=== PATIENT | male | born 1975 | race Caucasian/White ===

== ENCOUNTER 2023-10-28 13:18 | Inpatient (IN) | payer OTHER ==
[2023-10-28 14:01] VITALS: BMI 26.8
[2023-10-28] MEDS ORDERED: NALOXONE HCL 0.4 MG/ML VIAL IM PRN (19:47)
[2023-10-28] MEDS ORDERED: MAG HYDROX/AL HYDROX/SIMETH 30 ML UNIT-DOSE CUP PO PRN (19:47)
[2023-10-28] MEDS ORDERED: IBUPROFEN 400 MG TABLET (FP) PO PRN (19:47)
[2023-10-28] MEDS ORDERED: BENZONATATE 200 MG CAPSULE PO PRN (19:47)
[2023-10-28] MEDS ORDERED: LOPERAMIDE HCL 2 MG CAPSULE PO PRN (19:47)
[2023-10-28] MEDS ORDERED: BENZOCAINE/MENTHOL (CHLORASEPTIC ) LOZENGE MM PRN (19:47)
[2023-10-28] MEDS ORDERED: NICOTINE POLACRILEX 4 MG LOZENGE BC PRN (19:47)
[2023-10-28] MEDS ORDERED: guaiFENesin 600 MG TABLET.ER (FP) PO PRN (19:47)
[2023-10-28] MEDS ORDERED: MAGNESIUM HYDROX 2400MG/30ML ORAL SUSPENSION 30 ML CUP PO PRN (19:47)
[2023-10-28] MEDS ORDERED: POLYETHYLENE GLYCOL (HEALTHYLAX) 3350 17 GM PACKET PO PRN (19:47)
[2023-10-28] MEDS ORDERED: NALOXONE (NARCAN) HCL 4 MG/0.1 ML SPRAY NS PRN (19:47)
[2023-10-28] MEDS ORDERED: ACETAMINOPHEN 325 MG TABLET (FP) PO PRN (19:47)
[2023-10-28] MEDS: clonazePAM 0.5 MG ODT TABLETS SL ONE (20:42)
[2023-10-28] MEDS: LIDOCAINE 5% TOPICAL PATCH TP SCH (20:43)
[2023-10-28] MEDS: PRENATAL VITAMINS W/ FOLIC ACID TABLET (FP) PO SCH (20:43)
[2023-10-28] MEDS: MELATONIN 5 MG TABLETS PO SCH (21:32)
[2023-10-28] MEDS: THIAMINE 100 MG TABLET PO SCH (21:32)
[2023-10-28] MEDS: LIDOCAINE PATCH REMOVAL MC SCH (21:32)
[2023-10-29] MEDS: hydrOXYzine PAMOATE 25 MG CAPSULE (FP) PO PRN (01:26)
[2023-10-29] MEDS ORDERED: methaDONE HCL 10 MG TABLET PO SCH (09:00)
[2023-10-29] MEDS: DEXTROAMPHETAMINE/AMPHETAMINE 10 MG CAP.ER.24H PO SCH (11:06)
[2023-10-29] MEDS: clonazePAM 1 MG ODT TABLETS SL ONE (11:07)
[2023-10-29] MEDS: ARIPiprazole 5 MG TABLET PO SCH (11:54)
[2023-10-29] MEDS: GABAPENTIN 400 MG CAPSULE PO SCH (13:52)
[2023-10-29 14:39] LABS: POTASSIUM 4.1 mmol/L (3.5-5.1)
[2023-10-29 14:41] LABS: CALCIUM 8.8 mg/dL (8.5-10.1)
[2023-10-29 14:42] LABS: ALBUMIN 3.7 g/dl (3.4-5.0); BLOOD UREA NITROGEN 17.1 mg/dL (7-18)
[2023-10-29 14:44] LABS: CREATININE 0.8 mg/dL (0.55-1.3)
[2023-10-29 14:46] LABS: TOT PROT 7.4 g/dl (6.4-8.2)
[2023-10-29 14:47] LABS: BILIRUBIN,TOTAL 0.6 mg/dL (0.2-1)
[2023-10-29 15:04] LABS: HEMATOCRIT 38.7 % (35.4-49); HEMOGLOBIN 13.3 GM/dL (11.7-16.9); MCH 29.7 pg (25.7-33.7); MCHC 34.5 g/dl (32.0-35.9); MEAN CELL VOLUME 86.2 fl (80-96); PLATELET COUNT 299 10^3/uL (134-434); RBC 4.49 M/mm3 (4.00-5.60); RDW 14.9 % (11.9-15.9)
[2023-10-29 15:29] LABS: SYPHILIS W/ RPR CONF NON-REACTIVE (NONREACTIVE)
[2023-10-29] MEDS: IBUPROFEN 600 MG TABLET (FP) PO PRN (16:49)
[2023-10-29 17:24] LABS: URINE APPEARANCE CLEAR; URINE BILIRUBIN NEGATIVE (NEGATIVE); URINE COLOR YELLOW; URINE GLUCOSE (UA) NEGATIVE (NEGATIVE); URINE KETONE NEGATIVE (NEGATIVE); URINE LEUK ESTERASE NEGATIVE (NEGATIVE); URINE NITRITE NEGATIVE (NEGATIVE); URINE PROTEIN NEGATIVE (NEGATIVE); URINE UROBILINOGEN 0.2 mg/dL (0.2-1.0)
[2023-10-29] MEDS: clonazePAM 1 MG ODT TABLETS SL SCH (21:09)
[2023-10-29] MEDS: lamoTRIgine 25 MG TABLET PO SCH (21:09)
[2023-10-30] MEDS: clonazePAM 1 MG ODT TABLETS SL SCH (06:30)
[2023-10-30] MEDS: LACTULOSE 20 GM/30 ML UDC (FOR ORAL USE ONLY) PO SCH (13:16)
[2023-10-30] MEDS: NICOTINE POLACRILEX 4 MG GUM BUC PRN (21:26)
[2023-10-31] MEDS: DEXTROAMPHETAMINE/AMPHETAMINE 20 MG CAP.ER.24H PO SCH (09:36)
[2023-10-31] MEDS: SUVOREXANT 10 MG TABLET PO PRN (21:32)
[2023-11-03] MEDS ORDERED: SUVOREXANT 10 MG TABLET PO PRN (22:00)
[2023-11-04] MEDS ORDERED: clonazePAM 0.5 MG ODT TABLETS SL SCH (10:00)
[2023-11-04] MEDS: clonazePAM 0.5 MG ODT TABLETS SL SCH (13:14)
[2023-11-04] MEDS: clonazePAM 1 MG ODT TABLETS SL SCH (21:49)
[2023-11-05] MEDS: clonazePAM 1 MG ODT TABLETS SL SCH (13:08)
[2023-11-08] MEDS: SUVOREXANT 10 MG TABLET PO PRN (22:25)
[2023-11-09] MEDS: ARIPiprazole 10 MG TABLET PO SCH (10:34)
[2023-11-13 07:05] VITALS: BP 104/67; PULSE 80; RESP 18; TEMP 97.9
== END 2023-11-13 08:40 | disposition home or self-care (01) | DRG 772 ==
LOC: YASAS 13:18 → Y3W 18:58 → Y5N 11-04 15:32
PROVIDERS: ADMIT Allergy & Immunology; ATTEND Psychiatry & Neurology Pain Medicine
PROC: HZ42ZZZ Group Counseling for Substance Abuse Treatment, Cognitive-Behavioral (ICD-10-PCS; principal; 2023-10-28)
DX: F11.20 Opioid dependence, uncomplicated (principal); F10.20 Alcohol dependence, uncomplicated; F13.20 Sedative, hypnotic or anxiolytic dependence, uncomplicated; F14.20 Cocaine dependence, uncomplicated; F12.20 Cannabis dependence, uncomplicated; F17.210 Nicotine dependence, cigarettes, uncomplicated; F19.282 Other psychoactive substance dependence with psychoactive substance-induced sleep disorder; F33.1 Major depressive disorder, recurrent, moderate; F19.24 Other psychoactive substance dependence with psychoactive substance-induced mood disorder; F90.9 Attention-deficit hyperactivity disorder, unspecified type; F43.10 Post-traumatic stress disorder, unspecified; I95.9 Hypotension, unspecified; E11.9 Type 2 diabetes mellitus without complications; Z79.84 Long term (current) use of oral hypoglycemic drugs; Z86.69 Personal history of other diseases of the nervous system and sense organs; Z87.19 Personal history of other diseases of the digestive system
CPT/HCPCS: 36415; 80053; 80305; 80307; 81003; 82140; 85027; 86780; 86803; 87522; 87811; 93005; 93010